=== PATIENT | female | born 1960 | race Caucasian/White ===

== ENCOUNTER → 2018-11-27 | Outpatient (CLI) | payer OTHER | LOC: M.RAD 09:21 | DX: Z12.31 Encounter for screening mammogram for malignant neoplasm of breast (principal) ==

== ENCOUNTER → 2020-11-10 | Outpatient (CLI) | payer OTHER | LOC: M.RAD 09:57 | PROVIDERS: ATTEND Family Medicine | DX: Z12.31 Encounter for screening mammogram for malignant neoplasm of breast (principal); N64.89 Other specified disorders of breast ==